=== PATIENT | male | born 1950 ===

== ENCOUNTER 2017-08-15 18:53 | Inpatient (IN) | payer MEDICARE, OTHER ==
[2017-08-15] MEDS ORDERED: LORazepam 2 MG/ML INJ IV PRN ×3 (23:10)
[2017-08-15] MEDS ORDERED: ACETAMINOPHEN TAB 325 MG TAB PO PRN (23:19)
[2017-08-15 23:48] LABS: Magnesium 1.5 mg/dL (1.6-2.3)
[2017-08-15 23:54] LABS: Potassium 2.9 mmol/L (3.5-5.1)
[2017-08-16] MEDS ORDERED: SODIUM CHLORIDE 0.9% 1,000 ML with MVI, ADULT NO.4 WITH VIT K 10 ML, THIAMINE 100 MG, F... IV ONE ×4
[2017-08-16] MEDS ORDERED: Potassium Replacement Protocol 1 EACH MISC MISCELLANE PRN (00:10)
[2017-08-16] MEDS: MELATONIN 3 MG TABLET PO SCH ×2 (01:17→21:47)
[2017-08-16] MEDS: POTASSIUM CHLORIDE 10 MEQ in WATER FOR INJECTION 1 100ML.BAG IVPB SCH ×2 (01:18→03:00)
[2017-08-16 05:49] LABS: Anisocytosis Slight; Basophils % (A) 0 %; Eosinophils % (A) 1 %; Lymphocytes % (A) 26 %; MCH 36.5 pg (25.0-35.0); MCHC 33.5 g/dL (31.0-37.0); MCV 108.8 fL (80.0-100.0); Macrocytosis Marked; Mean Platelet Volume 6.8; Monocytes # (A) 0.1 k/uL (0-1.0); Monocytes % (A) 4 %; Neutrophils # (A) 2.7 k/uL (1.3-7.7); Neutrophils % (A) 69 %; Platelet Count 101 k/uL (150-450); Poikilocytosis Slight; RBC 1.75 m/uL (4.30-5.90); RDW 16.1 % (11.5-15.5); WBC 3.9 k/uL (3.8-10.6)
[2017-08-16 05:54] LABS: HGB 6.4 gm/dL (13.0-17.5)
[2017-08-16 05:56] LABS: Potassium 2.9 mmol/L (3.5-5.1)
[2017-08-16] MEDS ORDERED: POTASSIUM CHLORIDE ER 20 MEQ TAB.ER PO STA ×2 (06:01→07:31)
[2017-08-16] MEDS ORDERED: Magnesium Replacement Protocol 1 EACH MISC MISCELLANE PRN (07:32)
[2017-08-16] MEDS: SODIUM CHLORIDE 0.9% 1,000 ML IV SCH ×2 (07:59→21:47)
[2017-08-16] MEDS: MAGNESIUM SULFATE-D5W PMX 1 GM in DEXTROSE/WATER 1 100ML.BAG IVPB SCH ×2 (08:02→09:18)
[2017-08-16] MEDS ORDERED: PANTOPRAZOLE 40 MG/10 ML VIAL IVP SCH (09:00)
--- NOTE | 2017-08-16 10:36 | P.CONS ---
History of Present Illness - Reason for Consult Consult date: 08/16/17 GI bleeding Requesting physician: Bonnie Zhao - History of Present Illness 67-year-old male history of CAD, hyperlipidemia, hypertension, EtOH abuse drinks on a daily basis transferred from [place] with symptoms of dizziness lightheadedness that started a few days ago. Denies hematemesis hematochezia melena. Denies abdominal pain. No history of GI bleed. Consult requested for GI bleed. Hemoglobin 6.4. MCV 108. Platelet 101. Potassium 2.9. Sodium 131. BUN 21. Creatinine 1.3. Magnesium 1.5. Blood transfusion scheduled. No history of EGD. Last colonoscopy several years ago. Denies excessive usage of aspirin or NSAIDs. Review of Systems Constitutional: Denies fever, chills, sweats, weight gain, or loss. HEENT: Negative for migraines, blurred vision or loss, earaches, drainage, tinnitus, oral mucosal lesions, dysphagia, or odynophagia. Cardiac: CAD. Hyperlipidemia. Hypertension. Negative for chest pain, arrhythmias, or palpitation. Respiratory: Negative for shortness of breath, hemoptysis, cough, or sputum production. Gastrointestinal: See HPI for pertinent findings. Genitourinary: Negative for hematuria, urgency, frequency, polyuria, dysuria, or penile discharge. Musculoskeletal: Negative for muscle aches, swelling, arthritis, and arthralgias. Neurologic: Negative for stroke or TIA. Endocrine: Negative for thyroid problems. Skin: Negative for rash or itching. Psychiatric: Negative history for depression and anxiety Past Medical History Past Medical History: Coronary Artery Disease (CAD), Hyperlipidemia, Hypertension History of Any Multi-Drug Resistant Organisms: None Reported Past Surgical History: Appendectomy, Heart Catheterization With Stent Past Anesthesia/Blood Transfusion Reactions: No Reported Reaction Additional Past Anesthesia/Blood Transfusion Reaction / Comm: clausterphobia Date of Last Stent Placement:: unk Smoking Status: Former smoker - Past Family History Mother Additional Family Medical History / Comment(s): mom is alive healthy at age 90 Father Family Medical History: Cancer, Prostate Disorder Additional Family Medical History / Comment(s): - prostate cancer Medications and Allergies Home Medications Medication Instructions Recorded Confirmed Type Aspirin [Adult Low Dose Aspirin EC] 81 mg PO DAILY 08/15/17 08/15/17 History Atorvastatin [Lipitor] 40 mg PO HS 08/16/17 08/16/17 History Lisinopril [Prinivil] 20 mg PO DAILY 08/16/17 08/16/17 History Metoprolol Tartrate [Lopressor] 25 mg PO BID 08/16/17 08/16/17 History Allergies Allergy/AdvReac Type Severity Reaction Status Date / Time No Known Allergies Allergy Unverified 08/15/17 22:07 Physical Exam Vitals: Vital Signs Temp Pulse Pulse Resp BP BP Pulse Ox 08/16/17 10:21 98 F 98 14 106/64 97 08/16/17 06:40 98.4 F 89 18 116/74 99 08/16/17 00:00 18 08/15/17 22:18 97.8 F 89 18 127/83 100 08/15/17 21:16 96.8 F L 106 H 18 121/82 100 Intake and Output 08/15/17 08/16/17 08/16/17 22:59 06:59 14:59 Intake Total 0 Balance 0 Intake: Blood Product 0 Rc Pheresis 2 As3 Unit 0 [id number] Other: Voiding Method Toilet Urinal # Voids 0 1 1 # Bowel Movements 0 1 Weight 77.139 kg General appearance: The patient is alert, oriented, in no acute distress. HET: Head is normocephalic and atraumatic. Pupils are equal and reactive. Oropharynx is clear without lesions. Neck: Supple without lymphadenopathy. Trachea midline. Heart: S1 S2. Regular rate and rhythm. Lungs: No crackles or wheezes are heard. Abdomen: Soft, nontender, nondistended with bowel sounds. No peritoneal signs. No palpable organomegaly or masses. Extremities: Normal skin color and turgor. No cyanosis, rash, ulceration, clubbing, or edema. Radial and pedal pulses are 2/4 bilaterally. Neurological: No focal deficits. Strength and sensation are grossly intact. Results CBC & Chem 7: 08/16/17:08/16/17 05: Labs: Abnormal Lab Results - Last 24 Hours (Table) 08/15/17 08/16/17 08/16/17 Range/Units 23:24 05:02 09: RBC 1.75 L (4.30-5.90) m/uL Hgb 6.4 L* (13.0-17.5) gm/dL Hct 19.0 L* (39.0-53.0) % MCV 108.8 H (80.0-100.0) fL MCH 36.5 H (25.0-35.0) pg RDW 16.1 H (11.5-15.5) % Plt Count 101 L (150-450) k/uL Sodium 131 L (137-145) mmol/L Potassium 2.9 L* 2.9 L* (3.5-5.1) mmol/L BUN 21 H (9-20) mg/dL Creatinine 1.30 H (0.66-1.25) mg/dL Calcium 7.0 L (8.4-10.2) mg/dL Magnesium 1.5 L (1.6-2.3) mg/dL Crossmatch 08/16/17 Range/Units 07:40 RBC (4.30-5.90) m/uL Hgb (13.0-17.5) gm/dL Hct (39.0-53.0) % MCV (80.0-100.0) fL MCH (25.0-35.0) pg RDW (11.5-15.5) % Plt Count (150-450) k/uL Sodium (137-145) mmol/L Potassium (3.5-5.1) mmol/L BUN (9-20) mg/dL Creatinine (0.66-1.25) mg/dL Calcium (8.4-10.2) mg/dL Magnesium (1.6-2.3) mg/dL Crossmatch See Detail Assessment and Plan (1) Symptomatic anemia Narrative/Plan: 67-year-old male transferred from [facility] with symptoms of dizziness lightheadedness 2 days with electrolyte disturbances, hemoglobin of 6.4. 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 History of long-standing EtOH abuse , biochemical evidence of macrocytosis and thrombocytopenia. Current Visit: Yes Status: Acute Code(s): D64.9 - ANEMIA, UNSPECIFIED SNOMED Code(s): 986367592 (2) ETOH abuse Current Visit: Yes Status: Acute Code(s): F10.10 - ALCOHOL ABUSE, UNCOMPLICATED SNOMED Code(s): 95454501 (3) Macrocytosis Current Visit: Yes Status: Acute Code(s): D75.89 - OTHER SPECIFIED DISEASES OF BLOOD AND BLOOD-FORMING ORGANS SNOMED Code(s): 238975945 (4) Thrombocytopenia Current Visit: Yes Status: Acute Code(s): D69.6 - THROMBOCYTOPENIA, UNSPECIFIED SNOMED Code(s): 757664401 Plan: 1. CBC after blood transfusion and in a.m. PT/INR. 2. Clear liquid diet. Nothing by mouth after clear liquid breakfast in a.m. 3. Protonix 40 mg IV twice daily. 4. EGD colonoscopy tomorrow. 5. Alcohol abstinence advised. [facility] protocol. The mechanical handyman has discussed the risks, benefits and alternative therapies for the above-mentioned procedure and for both sedation/analgesia as well as necessary blood product administration, if indicated, as they pertain to this patient. The patient has indicated understanding and acceptance of the risks and procedures discussed. Thank you for this kind referral and the opportunity to participate in the care of your patient. This consultation was discussed with Dr. Augustin. The impression and plan of care have been directed as dictated.
[2017-08-16 13:10] LABS: Magnesium 1.9 mg/dL (1.6-2.3); Potassium 3.6 mmol/L (3.5-5.1)
[2017-08-16 14:44] LABS: Anisocytosis Slight; HGB 7.7 gm/dL (13.0-17.5); Hypochromasia Slight; MCH 35.3 pg (25.0-35.0); MCHC 33.6 g/dL (31.0-37.0); Macrocytosis Marked; Mean Platelet Volume 7.5; Platelet Count 108 k/uL (150-450); Poikilocytosis Slight; RBC 2.19 m/uL (4.30-5.90); RDW 18.4 % (11.5-15.5); WBC 5.9 k/uL (3.8-10.6)
[2017-08-16] MEDS ORDERED: PEG 3350-NA SULF,BICARB,CL/KCL 4,000 ML BOTTLE PO ONE ×2 (15:00→18:00)
[2017-08-16] MEDS: PANTOPRAZOLE 40 MG/10 ML VIAL IVP SCH (21:47)
--- NOTE | 2017-08-17 00:21 | P.HPIM ---
History of Present Illness H&P Date: 08/16/17 Chief Complaint: Dizziness and lightheadedness 67-year-old male history of CAD status post and placement, hyperlipidemia, hypertension, EtOH abuse drinks on a daily basis transferred from [place] with symptoms of dizziness lightheadedness that started a few days ago. Denies hematemesis hematochezia melena. Denies abdominal pain. No history of GI bleed. Denied any recent illnesses. Patient is a poor historian otherwise. Patient was found have Hemoglobin 6.4. MCV 108. Platelet 101. Potassium 2.9. Sodium 131. BUN 21. Creatinine 1.3. Magnesium 1.5. Patient underwent wide of PRBC transfusion.. No history of EGD. Last colonoscopy several years ago. Denies excessive usage of aspirin or NSAIDs. Review of Systems Constitutional: Patient denies any fever or chills . No generalized weakness or weight loss. Abdomen: Patient denied nausea vomiting and diarrhea and abdominal pain. Cardiovascular: Patient denies any chest pain or short of breath no palpitations. Respiratory: patient denied any cough is from production. No shortness of breath Neurologic: Patient denied any numbness or tingling headache. Patient does have dizziness and lightheadedness. No weakness Musculoskeletal: Patient denies any complaints of joint swelling or deformity. Skin: Negative Psychiatric: Negative Endocrine: No heat or cold intolerance. No recent weight gain. Genitourinary: No dysuria or hematuria. All other 14 point ROS negative except the above Past Medical History Past Medical History: Coronary Artery Disease (CAD), Hyperlipidemia, Hypertension History of Any Multi-Drug Resistant Organisms: None Reported Past Surgical History: Appendectomy, Heart Catheterization With Stent Past Anesthesia/Blood Transfusion Reactions: No Reported Reaction Additional Past Anesthesia/Blood Transfusion Reaction / Comment(s): clausterphobia Date of Last Stent Placement:: unk Smoking Status: Former smoker - Past Family History Mother Additional Family Medical History / Comment(s): mom is alive healthy at age 90 Father Family Medical History: Cancer, Prostate Disorder Additional Family Medical History / Comment(s): - prostate cancer Medications and Allergies Home Medications Medication Instructions Recorded Confirmed Type Aspirin [Adult Low Dose Aspirin EC] 81 mg PO DAILY 08/15/17 08/15/17 History Atorvastatin [Lipitor] 40 mg PO HS 08/16/17 08/16/17 History Lisinopril [Prinivil] 20 mg PO DAILY 08/16/17 08/16/17 History Metoprolol Tartrate [Lopressor] 25 mg PO BID 08/16/17 08/16/17 History Allergies Allergy/AdvReac Type Severity Reaction Status Date / Time No Known Allergies Allergy Unverified 08/15/17 22:07 Physical Exam Vitals: Vital Signs Temp Pulse Pulse Resp BP BP BP 08/16/17 14:29 96.1 F L 78 16 73/49 100/55 08/16/17 12:18 97.6 F 86 14 106/63 08/16/17 11:01 98.6 F 78 14 134/75 08/16/17 10:31 98 F 81 14 102/64 08/16/17 10:21 98 F 98 14 106/64 08/16/17 06:40 98.4 F 89 18 116/74 08/16/17 00:00 18 08/15/17 22:18 97.8 F 89 18 127/83 08/15/17 21:16 96.8 F L 106 H 18 121/82 Pulse Ox 08/16/17 14:29 96 08/16/17 12:18 99 08/16/17 11:01 99 08/16/17 10:31 99 08/16/17 10:21 97 08/16/17 06:40 99 08/16/17 00:00 08/15/17 22:18 100 08/15/17 21:16 100 Intake and Output 08/16/17 08/16/17 08/16/17 06:59 14:59 22:59 Intake Total 310 Balance 310 Intake: Blood Product 310 Rc Pheresis 2 As3 Unit 310 [id number] Other: Voiding Method Toilet Toilet Urinal Urinal # Voids 1 1 # Bowel Movements 0 1 PHYSICAL EXAMINATION: Patient is lying in the bed comfortably, no acute distress, awake alert and oriented. Patient is a poor historian.. HEENT: Normocephalic. Neck is supple. Pupils reactive. Nostrils clear. Oral cavity is moist. Ears reveal no drainage. Neck reveals no JVD, carotid bruits, or thyromegaly. CHEST EXAMINATION: Trachea is central. Symmetrical expansion. Lung brooks clear to auscultation and percussion. CARDIAC: Normal S1, S2 with no gallops. No murmurs ABDOMEN: Soft. Bowel sounds normal. No organomegaly. No abdominal bruits. Extremities: reveal no edema. No clubbing or cyanosis Neurologically awake, alert, oriented x3 with well-coordinated movements. No focal deficits noted Skin: No rash or skin lesions. Psychiatric: Coperative. Nonsuicidal Musculoskeletal: No joint swelling or deformity. Normal range of motion. Results CBC & Chem 7: 08/16/17 14:23 08/16/17 11:56 Labs: Abnormal Lab Results - Last 24 Hours (Table) 08/15/17 08/16/17 08/16/17 Range/Units 23:24 05:18 05:18 RBC 1.75 L (4.30-5.90) m/uL Hgb 6.4 L* (13.0-17.5) gm/dL Hct 19.0 L* (39.0-53.0) % MCV 108.8 H (80.0-100.0) fL MCH 36.5 H (25.0-35.0) pg RDW 16.1 H (11.5-15.5) % Plt Count 101 L (150-450) k/uL Sodium 131 L (137-145) mmol/L Potassium 2.9 L* 2.9 L* (3.5-5.1) mmol/L BUN 21 H (9-20) mg/dL Creatinine 1.30 H (0.66-1.25) mg/dL Calcium 7.0 L (8.4-10.2) mg/dL Magnesium 1.5 L (1.6-2.3) mg/dL Crossmatch 08/16/17 08/16/17 Range/Units 07:40 14:23 RBC 2.19 L (4.30-5.90) m/uL Hgb 7.7 L (13.0-17.5) gm/dL Hct 23.0 L (39.0-53.0) % MCV 105.0 H (80.0-100.0) fL MCH 35.3 H (25.0-35.0) pg RDW 18.4 H (11.5-15.5) % Plt Count 108 L (150-450) k/uL Sodium (137-145) mmol/L Potassium (3.5-5.1) mmol/L BUN (9-20) mg/dL Creatinine (0.66-1.25) mg/dL Calcium (8.4-10.2) mg/dL Magnesium (1.6-2.3) mg/dL Crossmatch See Detail Thrombosis Risk Factor Assmnt - DVT/VTE Prophylaxis DVT/VTE Prophylaxis: Mechanical Prophylaxis ordered - Choose All That Apply Any of the Below Risk Factors Present?: Yes Each Factor Represents 1 point: Obesity (BMI >25) Other Risk Factors: Yes Each Risk Factor Represents 2 Points: Age 61-74 years Other congenital or acquired thrombophilia - If yes, enter type in comment: No Thrombosis Risk Factor Assessment Total Risk Factor Score: 3 Thrombosis Risk Factor Assessment Level: Moderate Risk Assessment and Plan Assessment: Acute blood loss anemia possible upper GI. Status post PRBC x 1 unit transfusion Symptomatic anemia with dizziness and lightheadedness with hemoglobin level .4 on admission Alcohol abuse Macrocytosis and thrombocytopenia secondary to alcohol abuse Severe hypokalemia and hypomagnesemia Hypertension Hyperlipidemia History of coronary artery disease with stent placement DVT prophylaxis with SCDs Plan: Patient be continued on gentle hydration. Monitor H&H , Protonix IV. Patient will be started on thiamine and multivitamins. Clear liquids and nothing by mouth after midnight for possible EGD and colonoscopy as per GI recommendations. Will follow closely. Monitor for alcohol withdrawal symptoms and counseled extensively for all call abuse. Time with Patient: Greater than 30
[2017-08-17] MEDS: SODIUM CHLORIDE 0.9% 1,000 ML IV SCH ×2 (06:41→13:32)
[2017-08-17] MEDS: PANTOPRAZOLE 40 MG/10 ML VIAL IVP SCH ×2 (07:27→21:33)
[2017-08-17 09:34] LABS: Anisocytosis Slight; Basophils % (A) 0 %; Eosinophils % (A) 1 %; HCT 21.8 % (39.0-53.0); HGB 7.2 gm/dL (13.0-17.5); Hypochromasia Slight; Lymphocytes % (A) 24 %; MCH 34.9 pg (25.0-35.0); MCHC 32.9 g/dL (31.0-37.0); MCV 106.1 fL (80.0-100.0); Macrocytosis Marked; Mean Platelet Volume 7.4; Monocytes # (A) 0.1 k/uL (0-1.0); Monocytes % (A) 3 %; Neutrophils # (A) 2.9 k/uL (1.3-7.7); Neutrophils % (A) 71 %; Platelet Count 116 k/uL (150-450); Poikilocytosis Slight; RBC 2.06 m/uL (4.30-5.90); RDW 18.3 % (11.5-15.5); WBC 4.1 k/uL (3.8-10.6)
[2017-08-17 09:36] LABS: INR 1.3 (<1.2); Prothrombin Time 12.1 sec (9.0-12.0)
[2017-08-17 09:49] LABS: Albumin 2.4 g/dL (3.5-5.0); Calcium 7.5 mg/dL (8.4-10.2); Magnesium 1.4 mg/dL (1.6-2.3); Potassium 3.1 mmol/L (3.5-5.1); Total Bilirubin 1.9 mg/dL (0.2-1.3)
[2017-08-17] MEDS ORDERED: Potassium Replacement Protocol 1 EACH MISC MISCELLANE PRN (10:27)
[2017-08-17] MEDS: MAGNESIUM SULFATE-D5W PMX 1 GM in DEXTROSE/WATER 1 100ML.BAG IVPB SCH ×3 (10:57→13:33)
[2017-08-17] MEDS: POTASSIUM CHLORIDE ER 20 MEQ TAB.ER PO SCH ×2 (10:57→12:06)
[2017-08-17] MEDS: THIAMINE 100 MG TAB PO SCH (10:57)
[2017-08-17] MEDS: FOLIC ACID 1 MG TAB PO SCH (10:57)
[2017-08-17] MEDS ORDERED: PROPOFOL 10 MG/ML 20 ML VIAL IV ONE (18:40)
[2017-08-17] MEDS ORDERED: PHENYLEPHRINE-0.9% NACL SYG 1 MG/10 ML SYRINGE ONE (18:40)
[2017-08-17] MEDS ORDERED: IV FLUID CONTINUATION 150 ML IV ONE (18:50)
[2017-08-17] MEDS ORDERED: SODIUM CHLORIDE 0.9% 1,000 ML IV ONE (19:12)
--- NOTE | 2017-08-17 19:33 | P.PCN ---
Date of Procedure: 08/17/17 Procedure(s) Performed: Procedures: 1. Esophagogastroduodenoscopy and biopsy. 2. Colonoscopy and polypectomy. Preoperative diagnosis: Symptomatic anemia. Postoperative diagnosis: 1. Sliding hiatal hernia with LA grade B distal esophagitis. 2. Gastritis and duodenitis with no ulcers or active bleeding. 3. Biopsies obtained from the antrum. 4. Right colon polyps snared but no large polyps or cancer. Preparation: GoLYTELY prep. Sedation: Was provided by anesthesia. Brief clinical history: The patient is a 67-year-old male with history of CAD, hyperlipidemia, hypertension, EtOH abuse was transferred from [place] with symptoms of dizziness and lightheadedness that started a few days prior. Denies hematemesis, hematochezia or melena. Denies abdominal pain. No history of GI bleed. Hemoglobin 6.4. MCV 108. Platelet 101. Potassium 2.9. Sodium 131. BUN 21. Creatinine 1.3. Magnesium 1.5. No history of EGD. Last colonoscopy several years ago. Denies excessive usage of aspirin or NSAIDs. The details are summarized in the history and physical and dictated consultations and progress notes. This evaluation is to assess for a source of bleeding and anemia. Procedures: With the patient on his left lateral decubitus position and after informed consent and adequate sedation, I passed the Olympus-GIF 160 video upper endoscope through the cricopharyngeus down the esophagus. There was a small sliding hiatal hernia in the distal esophagus showed couple broad erosions covered with white exudate terminating at the level of the GE junction consistent with LA grade B distal esophagitis. There were no bleeding, mucosal tears or varices. The endoscope was then passed into the stomach which was insufflated with air and inspected in detail including the retroflex view in the cardia. The antrum showed areas of erythema and submucosal hemorrhages and multiple erosions consistent with antral gastritis. Similar findings were seen in the duodenal bulb with no evidence of ulcers or bleeding. Pyloric channel did not show any ulcers. There was no evidence of spontaneous bleeding. I obtained biopsies from the antrum then the endoscope was withdrawn and I proceeded with the colonoscopy. Perianal area did not show any fissures or fistulas. There were no masses felt on digital rectal examination. The Olympus CFQ 160L video colonoscope was then inserted in the rectum in the usual fashion and advanced to the cecum. There were 2 small polyps in the right colon which were snared and retrieved by suction but there were no large polyps or cancer. The mucosa appeared healthy. No obvious diverticular disease or other pathology noted. No evidence of spontaneous bleeding. I retroflexed the endoscope in the rectum before the endoscope was withdrawn. The patient tolerated the procedure well. Plan: The patient was reassured. Will await pathology results. The patient will be advised to abstain from drinking alcohol and would be recommended repeat colonoscopy in 5 years.
[2017-08-17] MEDS: MELATONIN 3 MG TABLET PO SCH (21:33)
[2017-08-18] MEDS: SODIUM CHLORIDE 0.9% 1,000 ML IV SCH ×3 (06:04→20:23)
[2017-08-18] MEDS: FOLIC ACID 1 MG TAB PO SCH (07:38)
[2017-08-18] MEDS: THIAMINE 100 MG TAB PO SCH (07:38)
[2017-08-18] MEDS: PANTOPRAZOLE 40 MG/10 ML VIAL IVP SCH ×2 (07:38→20:23)
--- NOTE | 2017-08-18 09:12 | P.PN ---
Subjective Progress Note Date: 08/18/17 Principal diagnosis: Anemia No bleeding denies hematemesis hematochezia melena. Status post EGD colonoscopy yesterday with findings of distal esophagitis no active bleeding. Right colon polypectomy. Hemoglobin 7.2 yesterday. Denies abdominal pain. Anticipating discharged today. Objective - Vital Signs Vital signs: Vital Signs Temp 98.8 F 08/18/17 06:10 Pulse 90 08/18/17 06:10 Resp 16 08/18/17 07:48 BP 111/78 08/18/17 06:10 Pulse Ox 100 08/18/17 06:10 Intake & Output 08/17/17 08/18/17 08/18/17 18:59 06:59 18:59 Intake Total 2049 Balance 2049 Weight 77.139 kg Intake: IV 250 Oral 1800 Other: Voiding Method Toilet Toilet Toilet Urinal Urinal Urinal # Voids 3 2 # Bowel Movements 1 - Exam General appearance: The patient is alert, oriented, in no acute distress. HET: Head is normocephalic and atraumatic. Pupils are equal and reactive. Oropharynx is clear without lesions. Neck: Supple without lymphadenopathy. Trachea midline. Heart: S1 S2. Regular rate and rhythm. Lungs: No crackles or wheezes are heard. Abdomen: Soft, nontender, nondistended with bowel sounds. No peritoneal signs. No palpable organomegaly or masses. Extremities: Normal skin color and turgor. No cyanosis, rash, ulceration, clubbing, or edema. Radial and pedal pulses are 2/4 bilaterally. Neurological: No focal deficits. Strength and sensation are grossly intact. - Labs CBC & Chem 7: 08/17/17 08:57 08/17/17 08:57 Labs: Abnormal Lab Results - Last 24 Hours (Table) 08/17/17 08/17/17 08/17/17 Range/Units 08:57 08:57 08:57 RBC 2.06 L (4.30-5.90) m/uL Hgb 7.2 L (13.0-17.5) gm/dL Hct 21.8 L (39.0-53.0) % MCV 106.1 H (80.0-100.0) fL RDW 18.3 H (11.5-15.5) % Plt Count 116 L (150-450) k/uL PT 12.1 H (9.0-12.0) sec INR 1.3 H (<1.2) Sodium 136 L (137-145) mmol/L Potassium 3.1 L (3.5-5.1) mmol/L Glucose 112 H (74-99) mg/dL Calcium 7.5 L (8.4-10.2) mg/dL Magnesium 1.4 L (1.6-2.3) mg/dL Total Bilirubin 1.9 H (0.2-1.3) mg/dL Total Protein 5.0 L (6.3-8.2) g/dL Albumin 2.4 L (3.5-5.0) g/dL Assessment and Plan (1) Symptomatic anemia Narrative/Plan: Status post EGD colonoscopy LA grade B distal esophagitis gastritis duodenitis no ulcers right colon polypectomy. Current Visit: Yes Status: Acute Code(s): D64.9 - ANEMIA, UNSPECIFIED SNOMED Code(s): 524641573 (2) ETOH abuse Current Visit: Yes Status: Acute Code(s): F10.10 - ALCOHOL ABUSE, UNCOMPLICATED SNOMED Code(s): 84117156 (3) Macrocytosis Current Visit: Yes Status: Acute Code(s): D75.89 - OTHER SPECIFIED DISEASES OF BLOOD AND BLOOD-FORMING ORGANS SNOMED Code(s): 380901133 (4) Thrombocytopenia Current Visit: Yes Status: Acute Code(s): D69.6 - THROMBOCYTOPENIA, UNSPECIFIED SNOMED Code(s): 707348879 Plan: 1. Regular diet. Alcohol abstinence advised. Discharge per medicine. Assessment and plan a care discussed with Dr. Augustin
[2017-08-18 10:28] LABS: Anisocytosis Slight; HCT 20.3 % (39.0-53.0); Hypochromasia Slight; MCH 35.5 pg (25.0-35.0); MCHC 33.2 g/dL (31.0-37.0); Macrocytosis Marked; Mean Platelet Volume 6.9; Platelet Count 125 k/uL (150-450); Poikilocytosis Slight; RDW 18.3 % (11.5-15.5); WBC 4.4 k/uL (3.8-10.6)
[2017-08-18 10:29] LABS: Anion Gap 10 mmol/L; Blood Urea Nitrogen 9 mg/dL (9-20); Calcium 7.5 mg/dL (8.4-10.2); Carbon Dioxide 20 mmol/L (22-30); Chloride 105 mmol/L (98-107); Glucose 114 mg/dL (74-99); Magnesium 1.6 mg/dL (1.6-2.3); Potassium 3.7 mmol/L (3.5-5.1); Sodium 135 mmol/L (137-145)
[2017-08-18 10:33] LABS: HGB 6.7 gm/dL (13.0-17.5)
[2017-08-18] MEDS ORDERED: MAGNESIUM SULFATE-D5W PMX 1 GM in DEXTROSE/WATER 1 100ML.BAG IVPB ONE (10:44)
[2017-08-18] MEDS ORDERED: POTASSIUM CHLORIDE ER 20 MEQ TAB.ER PO STA (10:45)
[2017-08-18 11:11] LABS: Eosinophils # (M) 0.18 k/uL (0-0.7); Lymphocytes # (M) 1.28 k/uL (1.0-4.8); Monocytes # (M) 0.13 k/uL (0-1.0); Neutrophils # (M) 2.82 k/uL (1.3-7.7); Neutrophils % (M) 64 %; Nucleated Red Blood Cells 0 /100 WBC (0-0); Total Cells Counted 100
[2017-08-18 11:24] LABS: Polychromasia Present
[2017-08-18 12:12] VITALS: RESP 16
[2017-08-18] MEDS: MELATONIN 3 MG TABLET PO SCH (20:23)
[2017-08-19 06:59] VITALS: BP 103/66; PULSE 87; TEMP 98.8
[2017-08-19] MEDS: THIAMINE 100 MG TAB PO SCH (07:44)
[2017-08-19] MEDS: PANTOPRAZOLE 40 MG/10 ML VIAL IVP SCH (07:44)
[2017-08-19] MEDS: FOLIC ACID 1 MG TAB PO SCH (07:44)
[2017-08-19] MEDS: SODIUM CHLORIDE 0.9% 1,000 ML IV SCH ×2 (07:45→17:03)
[2017-08-19 08:50] LABS: Anisocytosis Slight; Basophils % (A) 0 %; Eosinophils % (A) 1 %; HCT 23.1 % (39.0-53.0); HGB 7.7 gm/dL (13.0-17.5); Hypochromasia Slight; Lymphocytes # (A) 1.1 k/uL (1.0-4.8); Lymphocytes % (A) 28 %; MCH 34.3 pg (25.0-35.0); MCHC 33.2 g/dL (31.0-37.0); MCV 103.4 fL (80.0-100.0); Macrocytosis Moderate; Mean Platelet Volume 7.2; Monocytes # (A) 0.2 k/uL (0-1.0); Monocytes % (A) 4 %; Neutrophils # (A) 2.5 k/uL (1.3-7.7); Neutrophils % (A) 65 %; Platelet Count 120 k/uL (150-450); Poikilocytosis Slight; RBC 2.23 m/uL (4.30-5.90); RDW 19.4 % (11.5-15.5); WBC 3.9 k/uL (3.8-10.6)
--- NOTE | 2017-08-19 12:23 | P.PN ---
Subjective Progress Note Date: 08/17/17 Principal diagnosis: Acute Blood loss Anemia 67-year-old male history of CAD status post and placement, hyperlipidemia, hypertension, EtOH abuse drinks on a daily basis transferred from [place] with symptoms of dizziness lightheadedness that started a few days ago. Denies hematemesis hematochezia melena. Denies abdominal pain. No history of GI bleed. Denied any recent illnesses. Patient is a poor historian otherwise. Patient was found have Hemoglobin 6.4. MCV 108. Platelet 101. Potassium 2.9. Sodium 131. BUN 21. Creatinine 1.3. Magnesium 1.5. Patient underwent wide of PRBC transfusion.. No history of EGD. Last colonoscopy several years ago. Denies excessive usage of aspirin or NSAIDs. On 08/17/17 - Postoperative diagnosis: 1. Sliding hiatal hernia with LA grade B distal esophagitis. 2. Gastritis and duodenitis with no ulcers or active bleeding. 3. Biopsies obtained from the antrum. 4. Right colon polyps snared but no large polyps or cancer. Patient had EGD today. Review of Systems Constitutional: Patient denies any fever or chills . No generalized weakness or weight loss. Abdomen: Patient denied nausea vomiting and diarrhea and abdominal pain. Cardiovascular: Patient denies any chest pain or short of breath no palpitations. Respiratory: patient denied any cough is from production. No shortness of breath Neurologic: Patient denied any numbness or tingling headache. Patient does have dizziness and lightheadedness. No weakness Musculoskeletal: Patient denies any complaints of joint swelling or deformity. Skin: Negative Psychiatric: Negative Endocrine: No heat or cold intolerance. No recent weight gain. Genitourinary: No dysuria or hematuria. All other 14 point ROS negative except the above Objective - Vital Signs Vital signs: Vital Signs Temp 97.8 F 08/17/17 14:35 Pulse 77 08/17/17 14:35 Resp 16 08/17/17 14:35 BP 108/70 08/17/17 14:35 Pulse Ox 98 08/17/17 14:35 Intake & Output 08/16/17 08/17/17 08/17/17 18:59 06:59 18:59 Intake Total 786 1800 Output Total 500 600 Balance 286 1200 Intake: Oral 476 1800 Blood Product 310 Rc Pheresis 2 As3 Unit 310 [id number] Output: Urine 500 600 Other: Voiding Method Toilet Toilet Urinal Urinal # Voids 1 1 3 # Bowel Movements 1 2 - Exam PHYSICAL EXAMINATION: Patient is lying in the bed comfortably, no acute distress, awake alert and oriented. Patient is a poor historian.. HEENT: Normocephalic. Neck is supple. Pupils reactive. Nostrils clear. Oral cavity is moist. Ears reveal no drainage. Neck reveals no JVD, carotid bruits, or thyromegaly. CHEST EXAMINATION: Trachea is central. Symmetrical expansion. Lung brooks clear to auscultation and percussion. CARDIAC: Normal S1, S2 with no gallops. No murmurs ABDOMEN: Soft. Bowel sounds normal. No organomegaly. No abdominal bruits. Extremities: reveal no edema. No clubbing or cyanosis Neurologically awake, alert, oriented x3 with well-coordinated movements. No focal deficits noted Skin: No rash or skin lesions. Psychiatric: Coperative. Nonsuicidal Musculoskeletal: No joint swelling or deformity. Normal range of motion. - Labs CBC & Chem 7: 08/19/17 08:10 08/18/17 09:11 Labs: Abnormal Lab Results - Last 24 Hours (Table) 08/17/17 08/17/17 08/17/17 Range/Units 08:57 08:57 08:57 RBC 2.06 L (4.30-5.90) m/uL Hgb 7.2 L (13.0-17.5) gm/dL Hct 21.8 L (39.0-53.0) % MCV 106.1 H (80.0-100.0) fL RDW 18.3 H (11.5-15.5) % Plt Count 116 L (150-450) k/uL PT 12.1 H (9.0-12.0) sec INR 1.3 H (<1.2) Sodium 136 L (137-145) mmol/L Potassium 3.1 L (3.5-5.1) mmol/L Glucose 112 H (74-99) mg/dL Calcium 7.5 L (8.4-10.2) mg/dL Magnesium 1.4 L (1.6-2.3) mg/dL Total Bilirubin 1.9 H (0.2-1.3) mg/dL Total Protein 5.0 L (6.3-8.2) g/dL Albumin 2.4 L (3.5-5.0) g/dL Assessment and Plan Assessment: Acute blood loss anemia possible upper GI. Due to esophagitis and duodenitis Symptomatic anemia with dizziness and lightheadedness with hemoglobin level 6.4 on admission Alcohol abuse Macrocytosis and thrombocytopenia secondary to alcohol abuse Severe hypokalemia and hypomagnesemia Hypertension Hyperlipidemia History of coronary artery disease with stent placement DVT prophylaxis with SCDs Plan: Patient be continued on gentle hydration. Monitor H&H , Protonix IV. Patient was started on thiamine and multivitamins. Will follow closely. Monitor for alcohol withdrawal symptoms and counseled extensively for all call abuse. Time with Patient: Greater than 30
--- NOTE | 2017-08-19 12:24 | P.PN ---
Subjective Progress Note Date: 08/18/17 Principal diagnosis: Acute Blood loss Anemia 67-year-old male history of CAD status post and placement, hyperlipidemia, hypertension, EtOH abuse drinks on a daily basis transferred from [place] with symptoms of dizziness lightheadedness that started a few days ago. Denies hematemesis hematochezia melena. Denies abdominal pain. No history of GI bleed. Denied any recent illnesses. Patient is a poor historian otherwise. Patient was found have Hemoglobin 6.4. MCV 108. Platelet 101. Potassium 2.9. Sodium 131. BUN 21. Creatinine 1.3. Magnesium 1.5. Patient underwent wide of PRBC transfusion.. No history of EGD. Last colonoscopy several years ago. Denies excessive usage of aspirin or NSAIDs. On 08/18/17 - Hemoglobin dropped down to 6.7 today. Patient will be transfused with 1 unit PRBC Otherwise patient denied any complaints of chest pain or shortness of breath. No hematemesis or melena. GI is following. Anticipate discharge tomorrow. Review of Systems Constitutional: Patient denies any fever or chills . No generalized weakness or weight loss. Abdomen: Patient denied nausea vomiting and diarrhea and abdominal pain. Cardiovascular: Patient denies any chest pain or short of breath no palpitations. Respiratory: patient denied any cough is from production. No shortness of breath Neurologic: Patient denied any numbness or tingling headache. Patient does have dizziness and lightheadedness. No weakness Musculoskeletal: Patient denies any complaints of joint swelling or deformity. Skin: Negative Psychiatric: Negative Endocrine: No heat or cold intolerance. No recent weight gain. Genitourinary: No dysuria or hematuria. All other 14 point ROS negative except the above Objective - Vital Signs Vital signs: Vital Signs Temp 98.8 F 08/19/17 06:59 Pulse 87 08/19/17 06:59 Resp 16 08/19/17 07:46 BP 103/66 08/19/17 06:59 Pulse Ox 98 08/19/17 06:59 Intake & Output 08/18/17 08/19/17 08/19/17 18:59 06:59 18:59 Intake Total 610 Output Total 100 Balance 610 -100 Weight 77.139 kg 77.139 kg Intake: Oral 300 Blood Product 310 Rc Pheresis 2 As3 Unit 310 [id number] Output: Urine 100 Other: Voiding Method Toilet Toilet Urinal Urinal # Voids 2 3 # Bowel Movements 1 2 - Exam PHYSICAL EXAMINATION: Patient is lying in the bed comfortably, no acute distress, awake alert and oriented. Patient is a poor historian.. HEENT: Normocephalic. Neck is supple. Pupils reactive. Nostrils clear. Oral cavity is moist. Ears reveal no drainage. Neck reveals no JVD, carotid bruits, or thyromegaly. CHEST EXAMINATION: Trachea is central. Symmetrical expansion. Lung brooks clear to auscultation and percussion. CARDIAC: Normal S1, S2 with no gallops. No murmurs ABDOMEN: Soft. Bowel sounds normal. No organomegaly. No abdominal bruits. Extremities: reveal no edema. No clubbing or cyanosis Neurologically awake, alert, oriented x3 with well-coordinated movements. No focal deficits noted Skin: No rash or skin lesions. Psychiatric: Coperative. Nonsuicidal Musculoskeletal: No joint swelling or deformity. Normal range of motion. - Labs CBC & Chem 7: 08/19/17 08:10 08/18/17 09:11 Labs: Abnormal Lab Results - Last 24 Hours (Table) 08/16/17 08/19/17 Range/Units 07:40 08:10 RBC 2.23 L (4.30-5.90) m/uL Hgb 7.7 L (13.0-17.5) gm/dL Hct 23.1 L (39.0-53.0) % MCV 103.4 H (80.0-100.0) fL RDW 19.4 H (11.5-15.5) % Plt Count 120 L (150-450) k/uL Crossmatch See Detail Assessment and Plan Assessment: Acute blood loss anemia possible upper GI. Status post PRBC x 1 unit transfusion initially. 1 more unit today Distal esophagitis and gastritis Symptomatic anemia with dizziness and lightheadedness with hemoglobin level .4 on admission Alcohol abuse Macrocytosis and thrombocytopenia secondary to alcohol abuse Severe hypokalemia and hypomagnesemia Hypertension Hyperlipidemia History of coronary artery disease with stent placement DVT prophylaxis with SCDs Plan: Patient be continued on gentle hydration. Monitor H&H , Protonix IV. Continue with thiamine and multivitamins. Clear liquids and and advance as tolerated. Monitor for alcohol withdrawal symptoms and counseled extensively for all call abuse. Time with Patient: Greater than 30
--- NOTE | 2017-08-19 12:29 | P.DS ---
Providers Date of admission: 08/15/17 21:15 Attending physician: Bonnie Zhao Primary care physician: Bonnie Zhao Hospital Course: Discharge diagnosis Acute blood loss anemia possible upper GI. Status post PRBC x 2 unit transfusion Distal esophagitis and gastritis Symptomatic anemia with dizziness and lightheadedness with hemoglobin level .4 on admission Alcohol abuse Macrocytosis and thrombocytopenia secondary to alcohol abuse Severe hypokalemia and hypomagnesemia Hypertension Hyperlipidemia History of coronary artery disease with stent placement DVT prophylaxis with SCDs Hospital course 67-year-old male history of CAD status post and placement, hyperlipidemia, hypertension, EtOH abuse drinks on a daily basis transferred from [place] with symptoms of dizziness lightheadedness that started a few days ago. Denies hematemesis hematochezia melena. Denies abdominal pain. No history of GI bleed. Denied any recent illnesses. Patient is a poor historian otherwise. Patient was found have Hemoglobin 6.4. MCV 108. Platelet 101. Potassium 2.9. Sodium 131. BUN 21. Creatinine 1.3. Magnesium 1.5. Patient underwent wide of PRBC transfusion.. No history of EGD. Last colonoscopy several years ago. Denies excessive usage of aspirin or NSAIDs. EGD and colonoscopy Postoperative diagnosis: 1. Sliding hiatal hernia with LA grade B distal esophagitis. 2. Gastritis and duodenitis with no ulcers or active bleeding. 3. Biopsies obtained from the antrum. 4. Right colon polyps snared but no large polyps or cancer. On 08/18/17 - Hemoglobin dropped down to 6.7 today. Patient will be transfused with 1 unit PRBC Otherwise patient denied any complaints of chest pain or shortness of breath. No hematemesis or melena. GI is following. Anticipate discharge tomorrow. Patient be continued on gentle hydration. Monitor H&H , Protonix IV. Continue with thiamine and multivitamins. Clear liquids and and advance as tolerated. Monitor for alcohol withdrawal symptoms and counseled extensively for all call abuse. Follow-up with PCP for biopsy results. Patient was advised to do so. Chest physical examination was done Vital Signs - 24 hr 08/18/17 08/18/17 08/18/17 14:53 16:32 23:00 Temperature 97.1 F L 98.6 F Pulse Rate [ 91 95 Left] Respiratory 16 16 16 Rate Blood Pressure 109/55 118/66 [Right Arm] O2 Sat by Pulse 100 100 Oximetry 08/19/17 08/19/17 06:59 07:46 Temperature 98.8 F Pulse Rate [ 87 Left] Respiratory 16 16 Rate Blood Pressure 103/66 [Right Arm] O2 Sat by Pulse 98 Oximetry Patient Condition at Discharge: Stable Plan - Discharge Summary Discharge Rx Participant: No New Discharge Prescriptions: New Folic Acid 1 mg PO DAILY@1200 #30 tab Pantoprazole Sodium [Protonix] 40 mg PO AC-BRKFST #30 tablet. Thiamine [Vitamin B-1] 100 mg PO DAILY@1200 #30 tab Lisinopril [Zestril] 2.5 mg PO DAILY #30 tab Metoprolol Tartrate [Lopressor] 12.5 mg PO BID #60 dose Continue Aspirin [Adult Low Dose Aspirin EC] 81 mg PO DAILY Atorvastatin [Lipitor] 40 mg PO HS Discontinued Metoprolol Tartrate [Lopressor] 25 mg PO BID Lisinopril [Prinivil] 20 mg PO DAILY Discharge Medication List Aspirin [Adult Low Dose Aspirin EC] 81 mg PO DAILY 08/15/17 [History] Atorvastatin [Lipitor] 40 mg PO HS 08/16/17 [History] Folic Acid 1 mg PO DAILY@1200 #30 tab 08/18/17 [Rx] Pantoprazole Sodium [Protonix] 40 mg PO AC-BRKFST #30 tablet. 08/18/17 [Rx] Thiamine [Vitamin B-1] 100 mg PO DAILY@1200 #30 tab 08/18/17 [Rx] Lisinopril [Zestril] 2.5 mg PO DAILY #30 tab 08/19/17 [Rx] Metoprolol Tartrate [Lopressor] 12.5 mg PO BID #60 dose 08/19/17 [Rx] Patient Instructions/Handouts: Gastritis (DC), Abuse of Alcohol (DC) Activity/Diet/Wound Care/Special Instructions: Cardiac diet. Discharge Disposition: HOME SELF-CARE
== END 2017-08-19 18:37 | disposition home or self-care (01) | DRG 378 ==
LOC: 4MS4W 21:15
PROVIDERS: ADMIT Internal Medicine; ATTEND Internal Medicine
PROC: 0DB78ZX Excision of Stomach, Pylorus, Via Natural or Artificial Opening Endoscopic, Diagnostic (ICD-10-PCS; principal; 2017-08-17 10:20)
PROC: 0DBF8ZX Excision of Right Large Intestine, Via Natural or Artificial Opening Endoscopic, Diagnostic (ICD-10-PCS; 2017-08-17 10:20)
DX: K29.81 Duodenitis with bleeding (principal); D62 Acute posthemorrhagic anemia; D12.2 Benign neoplasm of ascending colon; D69.59 Other secondary thrombocytopenia; K20.9 Esophagitis, unspecified; D69.6 Thrombocytopenia, unspecified; D75.89 Other specified diseases of blood and blood-forming organs; E78.5 Hyperlipidemia, unspecified; E83.42 Hypomagnesemia; E87.6 Hypokalemia; F10.10 Alcohol abuse, uncomplicated; I10 Essential (primary) hypertension; I25.10 Atherosclerotic heart disease of native coronary artery without angina pectoris; K44.9 Diaphragmatic hernia without obstruction or gangrene; F40.240 Claustrophobia; Z79.82 Long term (current) use of aspirin; Z79.899 Other long term (current) drug therapy; Z87.891 Personal history of nicotine dependence; Z95.5 Presence of coronary angioplasty implant and graft; Z71.41 Alcohol abuse counseling and surveillance of alcoholic; Z80.42 Family history of malignant neoplasm of prostate
CPT/HCPCS: 43239; 45385; 80048; 80053; 83735; 84132; 85025; 85027; 85610; 86850; 86900; 86901; 86920; 88305